=== PATIENT | female | born 1950 | race Caucasian/White ===

== ENCOUNTER 2016-09-19 09:45 | Outpatient (RCR) | payer BC | END 2016-09-21 | disposition home or self-care (01) | LOC: PT 09:45 | PROVIDERS: ATTEND Physician Assistant | DX: M53.3 Sacrococcygeal disorders, not elsewhere classified (principal); M54.41 Lumbago with sciatica, right side | CPT/HCPCS: 97001; 97012; 97035; 97110; 97140; 97161; G0283; 97014 ==

== ENCOUNTER 2016-11-08 11:30 | Outpatient (RCR) | payer BC ==
[~2016-11-08 11:30] MED LIST: ASCO-262 PO; ASPI-860 PO; AZEL205. NS; AZEL23SP NS; CALC-140 PO; CYCL10TA45 PO; DOXY-182 PO; ESTR1PAT10 TD; FLAX100031 PO; GLUC-113 PO; LEVO5TAB12 PO; MULT-351 PO; MV-M1TAB21 PO; OMG1KC PO; PANT40TA3 PO; PROP80CA2 PO; VALS160T23 PO; VIT1TABL26 PO; VITA150T PO; [UNRECOGNIZED DRUG - CODE] PO
== END 2016-12-05 12:01 | disposition home or self-care (01) ==
LOC: PT 11:30
PROVIDERS: ATTEND Physician Assistant
DX: M53.3 Sacrococcygeal disorders, not elsewhere classified (principal); M25.562 Pain in left knee; M25.561 Pain in right knee; R26.2 Difficulty in walking, not elsewhere classified; M93.961 Osteochondropathy, unspecified, right lower leg
CPT/HCPCS: 97033; 97110; 97112; 97140; G8978; G8979; G8980